=== PATIENT | female | born 1980 | race Caucasian/White ===

== ENCOUNTER 2022-06-05 05:47 | Emergency (ER) | payer SELFPAY ==
[~2022-06-05] VITALS: Ht 170.2 cm; Wt 61.0 kg
[2022-06-05] MEDS ORDERED: HALOPERIDOL LACTATE 5MG/ML VIAL IM STA (06:32)
[2022-06-05] MEDS ORDERED: LORAZEPAM 2MG/ML CPJ IM STA (06:32)
[2022-06-05 06:57] LABS: BASOPHILS % 1.2 % (0.0-2.0); EOSINOPHILS % 1.1 % (0.0-5.0); HEMATOCRIT. 33.8 % (36.0-48.0); HEMOGLOBIN. 11.2 g/dL (12.0-16.0); LYMPHOCYTES % 22.8 % (20.0-50.0); MEAN CORPUSCULAR HEMOGLOBIN 25.9 pg (28.0-32.0); MEAN CORPUSCULAR VOLUME 77.8 fL (81.0-99.0); MEAN PLATELET VOLUME 7.7 fl (7.4-10.4); MONOCYTES % 9.5 % (2.0-8.0); NEUTROPHILS % 65.4 % (40.0-76.0); PLATELET 415 x1000/uL (130-400); RED BLOOD CELL COUNT 4.35 mill/uL (4.2-5.4); RED CELL DISTRIBUTION WIDTH 15.8 % (11.6-14.6)
[2022-06-05 07:17] LABS: CHLORIDE 109 mEq/L (98-107)
[2022-06-05 07:39] LABS: HCG SCREEN NEGATIVE
[2022-06-05 07:40] LABS: ETHANOL BLOOD < 10 mg/dL
[2022-06-05 08:21] LABS: CLARITY URINE CLEAR (CLEAR); COLOR URINE YELLOW (YELLOW); KETONES URINE NEGATIVE (NEGATIVE); LEUKOCYTE ESTERASE URINE NEGATIVE (NEGATIVE); NITRITE URINE NEGATIVE (NEGATIVE); OCCULT BLOOD URINE TRACE (NEGATIVE); PH URINE 5.5 (4.5-8.0); PROTEIN URINE NEGATIVE (NEGATIVE); SPECIFIC GRAVITY URINE 1.019 (1.005-1.030); UROBILINOGEN URINE 0.2 E.U./dL (0.2-1.0)
[2022-06-05 08:39] LABS: *BARBITURATES SCREEN URINE NEGATIVE (NEGATIVE); *BENZODIAZEPINES SCREEN URINE NEGATIVE (NEGATIVE); *COCAINE SCREEN URINE NEGATIVE (NEGATIVE); CANNABINOID URINE SCREEN NEGATIVE (NEGATIVE); METHADONE URINE SCREEN NEGATIVE (NEGATIVE); OPIATES URINE SCREEN NEGATIVE (NEGATIVE); PHENCYCLIDINE URINE SCREEN NEGATIVE (NEGATIVE)
[2022-06-05 09:41] LABS: *AMPHETAMINES SCREEN URINE PRESUMTIVE POSITIVE (NEGATIVE)
[2022-06-05] MEDS ORDERED: HALOPERIDOL LACTATE 5MG/ML VIAL IM NR (09:45)
[2022-06-05] MEDS ORDERED: LORAZEPAM 2MG/ML CPJ IM NR (09:45)
[2022-06-06 05:23] VITALS: BP 119/76
== END 2022-06-06 06:05 | disposition home or self-care (01) ==
LOC: ER 06:02
DX: F15.129 Other stimulant abuse with intoxication, unspecified (principal)
CPT/HCPCS: 36415; 80053; 80305; 80307; 80320; 80329; 81003; 84443; 84703; 85025; 96372; 99285; J1630; J2060; G0480

== ENCOUNTER 2022-06-07 10:01 | Emergency (ER) | payer OTHER ==
[~2022-06-07] VITALS: Ht 170.2 cm; Wt 59.0 kg
[2022-06-07 10:09] VITALS: BP 130/84
[2022-06-07] MEDS ORDERED: IBUPROFEN 600MG TABLET PO ONE (13:00)
== END 2022-06-07 13:45 | disposition home or self-care (01) ==
LOC: ER 10:48
DX: M79.602 Pain in left arm (principal); Z59.00 Homelessness unspecified
CPT/HCPCS: 99282